=== PATIENT | male | born 1960 | race Caucasian/White ===

== ENCOUNTER 2016-03-30 12:21 | Observation (INO) | payer MEDICARE ==
[~2016-03-30] VITALS: Ht 188 cm; Wt 122.5 kg
[~2016-03-30 12:21] MED LIST: ALBU8.5H2 INHALATION; AMIT75TA2 PO; ASCO100089 PO; ASPI325T32 PO; BUPR-97 PO; CARI350T PO; CARV6.252 PO; CHOL200047 PO; CICL34.6 TP; CICL60SU2 TP; CLIN60LO2 TP; DIAZ5TAB3 PO; DOCU240C41 PO; DOXY50CA PO; EZET10TA PO; GABA600T2 PO; INSU100I18 SUBQ; INSU100V7 SUBQ; ISOS60TA2 PO; KETO30SY IJ; LANS15TA3 PO; LIDO700A6 TP; LORA10CA PO; MELA3TAB11 PO; METO2.5T12 PO; METR55GE TOP; MINO50CA2 PO; MULT-666 PO; NIAC500T7 PO; NITR0.4T SL; OMEG10005 PO; OMEP20CA11 PO; OXYC20TA4 PO; OXYGEN; POLY17PO6 PO; POTA20TA16 PO; PRAM0.5T3 PO; SENN25TA8 PO; SPIR25TA3 PO; TEST200V20 IM; TOPI50TA32 PO; TORS20TA3 PO; UBID100C25 PO; VENL150C PO; VITA-230 PO; [UNRECOGNIZED DRUG - OTHER] PO; epi-pen; slow mag PO
[2016-03-30 12:32] VITALS: BP 116/76; PULSE 82; RESP 14; O2SAT 93
--- NOTE | 2016-03-30 13:41 | ED.REPORT ---
HPI-General Illness Date of Service Mar 30, 2016 ED Provider: Thor Rogers MD 55 year old male with a history of diabetes, hypertension, CLL and TBI 5 years ago who presents to the ED due to chest pressure and decreased mental status in the last 24 hours. Pt's family states that he has been sleepy for the last day. This morning his BGL was noted to be at 58. Pt's mentation has improved after BGL increased, but is still not at baseline. Pt's family is concerned because after his TBI, the patients mental status and memory has been very good. 4 months ago he was working on [employer] projects. His family states he has had decreased mental status intermittently in the last 4 months where he does not get out of the house and watched TV. He has also had multiple falls in the last few months with the last fall 1 week ago. Additionally, he has symptoms of slurred speech, facial droop (noticed 3 days ago) and dysphagia. Pt has seen Dr. Blas for these symptoms and has a follow up, but his family is concerned with his decreased mentation. Nursing Notes Stated Complaint: UNRESPONSIVE/LOW BLOOD SUGAR Chief Complaint: General Complaint Nursing Notes Reviewed: Yes Allergies: Coded Allergies: morphine (Verified Allergy, Severe, ITCHING, 03/30/16) IV only Oweueez-Vqa-Vnb Reductase Inhibitor (Verified Allergy, Intermediate, Flushing, Body aches and pains, 10/20/14) body aches and pain venom-honey bee (Verified Allergy, Intermediate, Shortness of Breath, swelling, 10/20/14) naproxen (Verified Adverse Reaction, Intermediate, Stomach ulcers, 10/20/14 ) stomach ulcers Scheduled ([prostrate [facility]]) 1 CAPSULE PO DAILY ([slow mag]) 64 MG PO BID Amitriptyline (Amitriptyline) 75 Mg Tablet 75 MG PO HS Ascorbic Acid (Vitamin C) 1,000 Mg Tab.chew 1,000 MG PO DAILY Aspirin (Aspirin) 325 Mg Tablet 325 MG PO DAILY Bupropion ER (Wellbutrin XL) 150 Mg Tab.er.24h 150 MG PO BID Carvedilol (Carvedilol) 6.25 Mg Tablet 6.25 MG PO BID Cholecalciferol (Vitamin D3) (Vitamin D3) 2,000 Unit Capsule 2,000 UNIT PO DAILY Ciclopirox/Ure/Camph/Menth/Euc (Ciclodan 8% Kit) 34.6 Ml Solution 34.6 ML TP DIRECTED Clindamycin Phosphate (Clindamycin Phosphate Topical) 60 Ml Lotion 1 APPLIC TP BID Doxycycline Monohydrate (Monodox) 50 Mg Capsule 50 MG PO BID Ezetimibe (Zetia) 10 Mg Tablet 10 MG PO MORNING Gabapentin (Gabapentin) 600 Mg Tablet 1,200 MG PO TID 2 tabs in the morning 2 tabs in the afternoon 2 tabs at bedtime Insulin Glargine (Lantus U100 Insulin Vial) 100 Unit/Ml Vial 40 UNIT SUBQ BID am and hs Isosorbide MN ER (Isosorbide MN ER) 60 Mg Tab.er.24h 120 MG PO DAILY Ketorolac Tromethamine (Ketorolac Tromethamine) 30 Mg/1 Ml Syringe 1-2 ML IJ DAILY Lansoprazole ODT (Prevacid ODT) 15 Mg Tablet 15 MG PO DAILY Lidocaine (Lidoderm) 700 Mg Adh..patch 1 PATCH TP DAILY 5% Loratadine (Claritin) 10 Mg Capsule 10 MG PO DAILY Melatonin (Melatonin) 3 Mg Tablet.er 6 MG PO HS Metolazone (Metolazone) 2.5 Mg Tablet 2.5 MG PO DAILY 1 tab 30 minutes before torsemide prn wt gain above 3 lbs Metronidazole (Metrogel) 55 Gm Gel.w.pump 1 APPLIC TOP BID Minocycline (Minocycline) 50 Mg Capsule 50 MG PO BID take one caps in the morning and one in the evening. use 100mg (2capsulses) for acne flair ups. Multivitamin (Once Daily) 1 Each Tablet 1 EACH PO DAILY Niacin (Niacin) 500 Mg Tablet 500 MG PO BID [place]-3 Fatty Acids ([place]-3) 1,000 Mg Capsule 1,000 MG PO DAILY Omeprazole (Omeprazole) 20 Mg Capsule.dr 20 MG PO BID Potassium Chloride (Potassium Chloride) 20 Meq Tab.er.prt 10 MEQ PO TID take with food twice a day. if metolazone taken, take 2 extra tabs twice a day. Pramipexole Dihydrochloride (Mirapex) 0.5 Mg Tablet 0.5 MG PO HS Spironolactone (Spironolactone) 25 Mg Tablet 12.5 MG PO HS Testosterone Cypionate (Testosterone Cypionate) 200 Mg/1 Ml Vial 200 MG IM Q 2 WKS inject intramuscularly 1ml (200mg) every other week alternating injection site. Topiramate (Topamax) 50 Mg Tablet 50 MG PO BID Torsemide (Torsemide) 20 Mg Tablet 80 MG PO DIRECTED 240mg QAM Ubidecarenone (Co Q-10) 100 Mg Capsule 100 MG PO DAILY Venlafaxine ER (Effexor XR) 150 Mg Cap.er.24h 150 MG PO DAILY Vitamin A Palmitate (Vitamin A) 10,000 Unit Capsule 10,000 UNIT PO DAILY Scheduled PRN ([Oxygen]) PRN PRN PRN For Shortness of Breath as needed throughout the day and with CPAP nightly Albuterol HFA (Proair HFA) 8.5 Gm Hfa.aer.ad 2 PUFFS INHALATION q4-6h PRN PRN For Shortness of Breath Carisoprodol (Soma) 350 Mg Tablet 0 PO BID PRN PRN For Pain 1 tablet every 4-6 hours as needed throughout the day. then 2 tablets at bedtime Diazepam (Diazepam) 5 Mg Tablet 0 PO BID PRN PRN For Anxiety 1 tablet every 6 hours as needed for pain/anxiety. and 2 tablets at bedtime. Docusate Calcium (Stool Softener) 240 Mg Capsule 240 MG PO DAILY PRN PRN For Constipation Insulin Lispro (HumaLOG U100 Insulin Pen) 100 Unit/1 Ml Insuln.pen 20-50 UNIT SUBQ TIDAC PRN PRN glucose level Blood Sugar Lispro Correction <151 0 units 151-175 1 unit 176-200 2 units 201-225 3 units 226-250 4 units 251-275 5 units 276-300 6 units 301-325 7 units 326-350 8 units 351-375 9 units 376-400 10 units >400 12 units Check blood sugars before meals and at bedtime. Use correction factor only before meals. Nitroglycerin SL (Nitrostat) 0.4 Mg Tab.subl 0.4 MG SL Q5MIN PRN PRN For Chest Pain Polyethylene Glycol 3350 (Miralax) 17 Gm Powd.pack 1 TBS PO DAILY PRN PRN For Constipation Sennosides (Senna Laxative) 25 Mg Tablet 25 MG PO ASDIRECTED PRN PRN For Constipation oxyCODONE (oxyCODONE) 20 Mg Tablet 20 MG PO Q4H PRN PRN For Pain Miscellaneous Medications ([epi-pen]) prn/ bee stings allergy Ciclopirox Olamine (Ciclopirox) 30 Ml Suspension 30 ML TP General Time Seen by MD: 13:40 Chief Complaint Altered mental status Hx Obtained From: Patient, Other family... Arrived By: Walk-in Severity: Current: No pain currently Associated with: Reports: Weakness, Denies: Fever, Shortness of breath Pertinent Negative: Relieved by nothing Similar Sx Previous: Yes Past Medical History Past Medical History CLL TBI 5 years ago CHF diastolic LEVY on CPAP Reports: Diabetes mellitus, Hypertension Past Surgical History Heart cath Back Neuro stimulator Smoking History Smoker Current Status UNK Social History Other Social History: Good social support Review of Systems Full Review of Systems Constitutional: Reports: Fatigue Cardiovascular: Reports: Chest pain GI: Reports: Dysphagia Neurologic: Reports: Change LOC, Problem walking (frequent falls), Slurred speech, Weakness Psychiatric: Reports: Change mental status Complete sys rev & neg: except as marked. Physical Exam Vital Signs Vital Signs Date Time Temp Pulse Resp B/P Pulse Ox O2 Delivery O2 Flow Rate FiO2 03/30/16 12:32 36.3 82 14 116/76 93 Room Air Initial VS: Reviewed Skin: Warm, Dry Alertness: Positive: Sleeping but arousable Somewhat slurred speech Head / Eyes: Atraumatic, Normocephalic, PERRL Neck: Atraumatic, Full range of motion Respiratory / Chest: Breath sounds NL, Breath sounds = bilat, No respiratory distress, No rales, No rhonchi, No wheezing Cardiovascular: Heart rate NL, Regular rhythm, Heart sounds NL, Cap refill not delayed, Peripheral circulation NL Abdomen: Atraumatic, Soft, Non-tender Lower Extremity / Pelvis / MS: Neurologic intact, Vascular intact Blistering and red patch 5x3cm L proximal medial upper calf 2+ edema lower extremities Speech: Positive: Slurred Neuro: See NIH NIH Stroke Scale Level of Consciousness: Not alert, arousable (1) Ask Month & Age: Both questions right (0) Open/Close Eyes/Hand Food Operations Manager: Performs both tasks (0) Horizontal EO Movements: None (0) Visual [place]: No visual loss (0) Facial Palsy: Minor paralysis (1) (R sided Flattening of nasolabial fold) Right Arm Motor Drift (10s): Drift, not touch bed (1) Left Arm Motor Drift (10s): No drift 10 sec (0) Right Leg Motor Drift (5s): No drift 5 sec (0) Left Leg Motor Drift (5s): No drift 5 sec (0) Limb Ataxia FNF/Heel-Aquino: No ataxia (0) Sensation (Arms/Legs/Face): Pinprick less sharp (1) (L face arm and leg dull compared to right) Language Aphasia: Loss fluency ID matls (1) Dysarthria: Slurring intelligible (1) Extinction/Inattention: No exctinct/inattent (0) NIHSS Score: 6 Time NIHSS Performed: 14:00 Date NIHSS Performed: Mar 30, 2016 Interpretation & Diagnostics Lab Results Interpretation Result Diagram: 03/30/16 1435 03/30/16 1435 Test 03/30/16 12:51 03/30/16 14:02 03/30/16 14:35 Hold Purple Top Tube Received (Received) Hold Blue Top Tube Received (Received) Hold [place] Top Tube Received (Received) Urine Color Yellow (YELLOW) Urine Appearance Clear (CLEAR,HAZY) Urine pH 5.5 (5.0-8.0) Urine Specific [place] 1.015 (1.003-1.035) Urine Protein Negativemg/dL (NEG,TRACE) Urine Glucose (UA) Negativemg/dL (NEGATIVE) Urine Ketones Negativemg/dL (NEGATIVE) Urine Occult Blood Negative (NEGATIVE) Urine Nitrite Negative (NEGATIVE) Urine Bilirubin Negative (NEGATIVE) Urine Urobilinogen Normalmg/dL (NORMAL) Urine Leukocyte Esterase Negative (NEGATIVE) Urine RBC 0-2/hpf (0-2) Urine WBC 0-5/hpf (0-5) Urine Epithelial Cells Few/hpf (NONE-MOD) Urine Crystals None seen (NONE SEEN) Urine Bacteria Few/hpf (NONE-FEW) Urine Hyaline Casts None/lpf (NONE) Urine Granular Casts None seen (NONE SEEN) Urine Waxy Casts None seen (NONE SEEN) Urine Red Blood Cell Casts None seen (NONE SEEN) Urine White Blood Cell Casts None seen (NONE SEEN) Urine Mucus None seen (None Seen) Urine Trichomonas None seen (NONE SEEN) Urine Yeast None (NONE SEEN) Urinalysis Comment None Urine Culture Reflexed Not indicated White Blood Count 9.2th/mm3 (3.8-10.1) Red Blood Count 5.79mil/mm3 (4.40-5.80) Hemoglobin 17.0g/dL (13.8-17.2) Hematocrit 54.6% (41.0-50.0) Mean Corpuscular Volume 94.3fL (81-100) Mean Corpuscular Hemoglobin 29.4pg (27.0-35.0) Mean Corpuscular Hemoglobin Concent 31.1% (32.0-37.0) Red Cell Distribution Width 15.4% (12.3-15.4) Platelet Count 155bil/L (150-400) Neutrophils (%) (Auto) 64.7% (40-74) Lymphocytes (%) (Auto) 21.7% (14-46) Monocytes (%) (Auto) 10.4% (4-12) Eosinophils (%) (Auto) 2.2% (0-5) Basophils (%) (Auto) 0.5% (0-3) Prothrombin Time 10.0sec (8.1-12.5) Prothromb Time International Ratio 0.94ratio Sodium Level 142mEq/L (134-144) Potassium Level 4.4mEq/L (3.5-5.2) Chloride Level 99mEq/L (97-108) Carbon Dioxide Level 30mmol/L (18-29) Blood Urea Nitrogen 20mg/dL (6-24) Creatinine 1.57mg/dL (0.76-1.27) Estimat Glomerular Filtration Rate 49mL/min (>59) Glucose Level 92mg/dL (60-99) Calcium Level 9.0mg/dL (8.5-10.1) Total Bilirubin 0.5mg/dL (0.0-1.2) Aspartate Amino Transf (AST/SGOT) 85U/L (0-50) Alanine Aminotransferase (ALT/SGPT) 165U/L (0-44) Alkaline Phosphatase 197U/L (25-150) Troponin T < 0.010ug/L (0.0-0.011) Total Protein 7.3g/dL (6.4-8.4) Albumin 4.4g/dL (3.4-5.0) General Lab Results Interp 1: Labs reviewed ECG Interpretation Time: 14:45 Interpreted by: ED physician Normal ECG Interpretation: Normal ECG w/ rate of... (81) CT Head Interpretation IMPRESSION: No acute intracranial findings. Dictated by: Margoth Obando M.D. on 03/30/2016 at 14:55 Study: Head CT no contrast Interpretation / Wet Read by: Interpret - Radiologist Re-Eval/Medical Decision Source of Hx: Old records Time of Eval: 16:13 Re-Evaluation/Progress Note: Pt updated of labs and plan for ammonia level and US. Recommended admission. Pt understands and agrees with plan. All questions addressed. Consultation : Referral / Consult Name: Kelly Ray MD Consulted With: Hospitalist Call Returned at: 16:41 Supervisor Cytology: Will see patient, Agrees with eval, Agrees with plan, Accepts admit Counseled Regarding: Diagnosis, Lab results, Need for admission Discharge & Departure Primary Impression: Altered mental status Altered mental status type: unspecified Qualified Code: R41.82 - Altered mental status, unspecified Additional Impression: Hepatitis Disposition: ADMITTED TO HOSPITAL Discharge Condition All VS Reviewed: Yes Referrals: Jordi Le MD (PCP) Trey Blas MD Scribe Attestation Portions of this note were transcribed by Lilly Huff. I, (Dr. Rogers) personally performed the history, physical exam and medical decision-making; I reviewed and confirmed the accuracy of the information in the transcribed note. Signed by: Lilly Huff. 03/30/2016, [id number] copies to: Jordi Le MD; Trey Blas MD, Kirk H MD Mar 30, 2016 13:41 Lilly Huff Mar 30, 2016 14:07
[2016-03-30 14:51] LABS: APPEARANCE,URINE CLEAR (CLEAR,HAZY); COLOR,URINE YELLOW (YELLOW); PH,URINE 5.5 (5.0-8.0)
[2016-03-30 14:52] LABS: OCCULT BLOOD,URINE NEGATIVE (NEGATIVE); UROBILINOGEN,URINE NORMAL (NORMAL)
[2016-03-30 14:55] LABS: BASOPHILS % (AUTO) 0.5 % (0-3); EOSINOPHILS % (AUTO) 2.2 % (0-5); MONOCYTES % (AUTO) 10.4 % (4-12); Mean Corpuscular Hemoglobin 29.4 pg (27.0-35.0); Mean Corpuscular Volume 94.3 fL (81-100); NEUTROPHILS % (AUTO) 64.7 % (40-74); Platelet Count 155 bil/L (150-400)
--- NOTE | 2016-03-30 15:00 | DRSVH ---
PROCEDURE: CT BRAIN WITHOUT CONTRAST ([id number]) INDICATIONS: Stroke TECHNIQUE: Noncontrast 4.5 mm thick angled axial sections acquired from the foramen magnum to the vertex, with c oronal reformats. COMPARISON: None. FINDINGS: Image quality: Excellent. CSF spaces: Basal cisterns are patent. No extra-axial fluid collections. Ventricles are normal in size and shape. Brain: No midline shift. No intracranial masses or hemorrhage. Meeks-white matter interface is norm al. Skull and face: Calvarium and visualized facial bones are intact, without suspicious lesions. Sinuses: Visualized sinuses and mastoids are clear. IMPRESSION: No acute intracranial findings. Dictated by: Margoth Obando M.D. on 03/30/2016 at 14:55 Approved by: Margoth Obando M.D. on 03/30/2016 at 14:58
[2016-03-30 15:10] LABS: INR 0.94 ratio
[2016-03-30 15:28] LABS: TROPONIN T < 0.010 ug/L (0.0-0.011)
[2016-03-30] MEDS ORDERED: Multivitamin w/Vit K Inj 10 ML, Thiamine Inj 100 MG, Folic Acid Inj 1 MG, Magnesium Sul... IV ONE ×5 (16:37)
[2016-03-30] MEDS ORDERED: D5 0.45% NaCl + KCl 20 mEq/L 500 ML IV SCH (17:33)
[2016-03-30] MEDS ORDERED: Ondansetron 2 mg/mL 2 mL Inj IVPUSH PRN (17:35)
--- NOTE | 2016-03-30 17:52 | DRSVH ---
PROCEDURE: US ABDOMEN ([id number]) INDICATIONS: elevated transaminases TECHNIQUE: Real-time scanning was performed of the abdominal and retroperitoneal organs, with image documentatio n. COMPARISON: None. FINDINGS: Liver: The liver measures 14.5 cm in length and demonstrates increased echogenicity. Gallbladder: Patient is status post cholecystectomy. Biliary ducts: Intrahepatic bile ducts are non-dilated. Extrahepatic bile duct caliber measures 7.6 mm. Normal is 6-7 mm or less in diameter, or 10 mm or less post-cholecystectomy. Pancreas: The pancreas is nonvisualized due to overlying bowel gas. Spleen: Spleen is normal in size and homogeneous in echotexture. Kidneys: Kidneys are normal in size and echotexture. Right kidney measures 9.8 cm long; left kidney measures 10.9 cm long. No hydronephrosis or nephrolithiasis. No solid masses. Aorta: The aorta is nonvisualized due to overlying bowel gas. Iliacs: The iliacs are not visualized. IVC: Intrahepatic inferior vena cava is patent. Miscellaneous: No free abdominal fluid. IMPRESSION: 1. Limited study. 2. Probable hepatic steatosis, although other sources of hepatocellular dysfunction could be consider ed in the differential diagnosis. Dictated by: Margoth Obando M.D. on 03/30/2016 at 17:49 Approved by: Margoth Obando M.D. on 03/30/2016 at 17:51
[2016-03-30 18:09] VITALS: PULSE 80
[2016-03-30 18:28] VITALS: BP 119/65; PULSE 78; RESP 12; O2SAT 97
--- NOTE | 2016-03-30 18:49 | NUR ---
Admit Admission info completed w/ information from , as pt is very drowsy. Per , pt has a neurostimulator with the paddle in his R lower side which needs to be adjusted prn. will be her much of shift and will instruct staff on use of device before she leaves. 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 During admit process, BG checked and found to be low, given 1/2 amp D50 by primary RN. Pt has hx chronic back pain but currently appears to be sleeping peacefully.
[2016-03-30] MEDS ORDERED: Albuterol-Ipratropium 3 mL Inhalation Solution NEB PRN (19:55)
[2016-03-30 20:00] VITALS: PULSE 77
--- NOTE | 2016-03-30 20:00 | PCM.HPMED ---
Subjective Date of Service Mar 30, 2016 Primary Provider: Admitting Physician: Kelly Ray MD Primary Care Physician: Jordi Le MD Attending Physician: Kelly Ray MD Chief Complaint: low blood glucose / weakness HISTORY was OBTAINED FROM PATIENT / [facility] NOTES History of present illness 55y m w/ progressive decline x 4 months,fatigue- associated falls, presented today w.ongoing somnolence worse than before also slurred speech, facial droop and dysphagia. Intermittent sinus congestion, morning productive cough is chronic. no significant change in BM/urination. ongonig minor pimples skin infections on back despite doxycycline, new left popliteal erythema blister from the wheelchair. 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 Prasad. aware of elevated lipid and fatty liver hx. Dr Blas recently decreased topiramate dose. In the ER, IVF w/ thiamine administered as requested by this provider until U tox came back w neg opioid despite indicating he had opioid earlier today and until diet could be advanced. Review of Systems - none of the following - F/C/sick contact / wt change/ GIFFORD / cp / acid reflux / leg swelling / yeast infections / rash chronic boils - per dermatoligst doxycycline x years, hibiclens has been expensive FAMILY HX Social Hx smoker MEDICATIONS ([[facility]]) 1 CAPSULE PO DAILY ([slow mag]) 64 MG PO BID Amitriptyline (Amitriptyline) 75 Mg Tablet 75 MG PO HS Ascorbic Acid (Vitamin C) 1,000 Mg Tab.chew 1,000 MG PO DAILY Aspirin (Aspirin) 325 Mg Tablet 325 MG PO DAILY Bupropion ER (Wellbutrin XL) 150 Mg Tab.er.24h 150 MG PO BID Carvedilol (Carvedilol) 6.25 Mg Tablet 6.25 MG PO BID Cholecalciferol (Vitamin D3) (Vitamin D3) 2,000 Unit Capsule 2,000 UNIT PO DAILY Ciclopirox/Ure/Camph/Menth/Euc (Ciclodan 8% Kit) 34.6 Ml Solution 34.6 ML TP DIRECTED Clindamycin Phosphate (Clindamycin Phosphate Topical) 60 Ml Lotion 1 APPLIC TP BID Doxycycline Monohydrate (Monodox) 50 Mg Capsule 50 MG PO BID Ezetimibe (Zetia) 10 Mg Tablet 10 MG PO MORNING Gabapentin (Gabapentin) 600 Mg Tablet 1,200 MG PO TID 2 tabs in the morning 2 tabs in the afternoon 2 tabs at bedtime Insulin Glargine (Lantus U100 Insulin Vial) 100 Unit/Ml Vial 40 UNIT SUBQ BID am and hs Isosorbide MN ER (Isosorbide MN ER) 60 Mg Tab.er.24h 120 MG PO DAILY Ketorolac Tromethamine (Ketorolac Tromethamine) 30 Mg/1 Ml Syringe 1-2 ML IJ DAILY Lansoprazole ODT (Prevacid ODT) 15 Mg Tablet 15 MG PO DAILY Lidocaine (Lidoderm) 700 Mg Adh..patch 1 PATCH TP DAILY 5% Loratadine (Claritin) 10 Mg Capsule 10 MG PO DAILY Melatonin (Melatonin) 3 Mg Tablet.er 6 MG PO HS Metolazone (Metolazone) 2.5 Mg Tablet 2.5 MG PO DAILY 1 tab 30 minutes before torsemide prn wt gain above 3 lbs Metronidazole (Metrogel) 55 Gm Gel.w.pump 1 APPLIC TOP BID Minocycline (Minocycline) 50 Mg Capsule 50 MG PO BID take one caps in the morning and one in the evening. use 100mg (2capsulses) for acne flair ups. Multivitamin (Once Daily) 1 Each Tablet 1 EACH PO DAILY Niacin (Niacin) 500 Mg Tablet 500 MG PO BID Dustin-3 Fatty Acids (Dustin-3) 1,000 Mg Capsule 1,000 MG PO DAILY Omeprazole (Omeprazole) 20 Mg Capsule.dr 20 MG PO BID Potassium Chloride (Potassium Chloride) 20 Meq Tab.er.prt 10 MEQ PO TID take with food twice a day. if metolazone taken, take 2 extra tabs twice a day. Pramipexole Dihydrochloride (Mirapex) 0.5 Mg Tablet 0.5 MG PO HS Spironolactone (Spironolactone) 25 Mg Tablet 12.5 MG PO HS Testosterone Cypionate (Testosterone Cypionate) 200 Mg/1 Ml Vial 200 MG IM Q 2 WKS inject intramuscularly 1ml (200mg) every other week alternating injection site. Topiramate (Topamax) 50 Mg Tablet 50 MG PO BID Torsemide (Torsemide) 20 Mg Tablet 80 MG PO DIRECTED 240mg QAM Ubidecarenone (Co Q-10) 100 Mg Capsule 100 MG PO DAILY Venlafaxine ER (Effexor XR) 150 Mg Cap.er.24h 150 MG PO DAILY Vitamin A Palmitate (Vitamin A) 10,000 Unit Capsule 10,000 UNIT PO DAILY Scheduled PRN ([Oxygen]) PRN PRN PRN For Shortness of Breath as needed throughout the day and with CPAP nightly Albuterol HFA (Proair HFA) 8.5 Gm Hfa.aer.ad 2 PUFFS INHALATION q4-6h PRN PRN For Shortness of Breath Carisoprodol (Soma) 350 Mg Tablet 0 PO BID PRN PRN For Pain 1 tablet every 4-6 hours as needed throughout the day. then 2 tablets at bedtime Diazepam (Diazepam) 5 Mg Tablet 0 PO BID PRN PRN For Anxiety 1 tablet every 6 hours as needed for pain/anxiety. and 2 tablets at bedtime. Docusate Calcium (Stool Softener) 240 Mg Capsule 240 MG PO DAILY PRN PRN For Constipation Insulin Lispro (HumaLOG U100 Insulin Pen) 100 Unit/1 Ml Insuln.pen 20-50 UNIT SUBQ TIDAC PRN PRN glucose level Blood Sugar Lispro Correction <151 0 units 151-175 1 unit 176-200 2 units 201-225 3 units 226-250 4 units 251-275 5 units 276-300 6 units 301-325 7 units 326-350 8 units 351-375 9 units 376-400 10 units >400 12 units Check blood sugars before meals and at bedtime. Use correction factor only before meals. 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 De La Torre) Heart cath 04/2012 -1. Minor coronary artery disease.2. Left ventricular ejection fraction 65% // Hypertension/dyslipidemia complex regional pain syndrome/fibromyalgia GERD/constipation chronic urinary incontinence with nocturia, Diabetes mellitus, obesity, sleep disorder, sleep apnea (has CPAP/Dr. Jose Nino MD depression/anxiety,arthritis, multiple spinal surgeries, postlaminectomy syndrome Neuro stimulator 10/2014 hypogonadism Allergies Coded Allergies: morphine (Verified Allergy, Severe, ITCHING, 03/30/16) IV only Gurxqnn-Xqk-Luh Reductase Inhibitor (Verified Allergy, Intermediate, Flushing, Body aches and pains, 10/20/14) body aches and pain venom-honey bee (Verified Allergy, Intermediate, Shortness of Breath, swelling, 10/20/14) naproxen (Verified Adverse Reaction, Intermediate, Stomach ulcers, 10/20/14 ) stomach ulcers PMH Social History Hx Alcohol Use: No Hx Substance Use: No Hx Tobacco Use: No Smoking Status: Smoker Current Status UNK Exam Vital Signs Vital Sign - Last Date Time Temp Pulse Resp B/P Pulse Ox O2 Delivery O2 Flow Rate FiO2 03/30/16 18:28 36.6 78 12 119/65 97 Nasal Cannula 2.00 Lab and Diagnostics Labs Exam on admission 2L NC NAD drowsy appearance, symmetrical facies NC/AT no icterus no injected eyes EOMI PERRL /no pharyngeal lesions/ no oral lesions / hearing intact Supple neck CTAB equal chest rise / no accessory muscle use / speaks in full sentences / no rrw RRR S1 S2 / no mrg / 2+ radial pulses Soft nt nd + BS no hepatosplenomegaly moderate damian edema no cyanosis no ecchymosis of lower extremities No rash / no jaundice DICK follows commands patient is able to swallow without difficulty and able to stay awake erythema and pimples on back blisters on left popliteal EKG sinus 81 ALT > AST, alk phos Trop 0.013 Tsh normal Cr 1.57 , mildly more elevated than baseline hepatitis panel pending lipid panel pending ammonia 37 PROCEDURE: US ABDOMEN ([id number]) INDICATIONS: elevated transaminases TECHNIQUE: Real-time scanning was performed of the abdominal and retroperitoneal organs, with image documentation. COMPARISON: None. FINDINGS: Liver: The liver measures 14.5 cm in length and demonstrates increased echogenicity. Gallbladder: Patient is status post cholecystectomy. Biliary ducts: Intrahepatic bile ducts are non-dilated. Extrahepatic bile duct caliber measures 7.6 mm. Normal is 6-7 mm or less in diameter, or 10 mm or less post-cholecystectomy. Pancreas: The pancreas is nonvisualized due to overlying bowel gas. Spleen: Spleen is normal in size and homogeneous in echotexture. Kidneys: Kidneys are normal in size and echotexture. Right kidney measures 9.8 cm long; left kidney measures 10.9 cm long. No hydronephrosis or nephrolithiasis. No solid masses. Aorta: The aorta is nonvisualized due to overlying bowel gas. Iliacs: The iliacs are not visualized. IVC: Intrahepatic inferior vena cava is patent. Miscellaneous: No free abdominal fluid. IMPRESSION: 1. Limited study. 2. Probable hepatic steatosis, although other sources of hepatocellular dysfunction could be considered in the differential diagnosis. Result Diagram: 03/30/16 1435 03/30/16 1435 Assessment & Plan Active issues and reason for admission Ill appearing male w/ somnolence and hypoglycemia, treating as diffuse cellulitis, not totally controlled w/ chronic doxycycline and pending immunoglobulin levels with known hx of immunoglobinemia and severe infections --pending cortisol --start vanco/rocephine --pending immunoglobulin levels, prior hx of IVIG, consult Dr. 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 De La Torre) Heart cath 04/2012 -1. Minor coronary artery disease.2. Left ventricular ejection fraction 65% // Hypertension/dyslipidemia complex regional pain syndrome/fibromyalgia GERD/constipation chronic urinary incontinence with nocturia, Diabetes mellitus, obesity, sleep disorder, sleep apnea (has CPAP/Dr. Jose Nino MD depression/anxiety,arthritis, multiple spinal surgeries, postlaminectomy syndrome Neuro stimulator 10/2014 hypogonadism --resume all home pain/mood medications, pending topiramate levels Diet DM, D5 03/13 NS K 50cc x 500cc due to hypoglycemia on admission DVT prophylaxis lovenox heparin scd ambulate Code full Disposition inpatient Assessment and plan were discussed with patient Kelly Ray MD Mar 30, 2016 19:59
[2016-03-30] MEDS ORDERED: Piperacillin-Tazo 3.375 Gm Inj 3.375 GM in Dextrose 5% Minibag Plus 50 ML IV ONE (20:25)
[2016-03-30] MEDS: Insulin Human REGular 300 Unit/3 mL Inj SUBQ SCH (20:30)
[2016-03-30] MEDS: buPROPion XL 150 mg ER24 Tablet PO SCH (21:03)
[2016-03-30 21:06] VITALS: BP 111/72; PULSE 84; RESP 16; O2SAT 98
[2016-03-30] MEDS: Insulin GLARgine 100 Unit/mL Syringe SUBQ SCH (21:18)
--- NOTE | 2016-03-30 22:31 | PCM.CONPHA ---
Subjective low blood glucose / weakness His family states he has had decreased mental status intermittently in the last 4 months where he does not get out of the house and watched TV. He has also had multiple falls in the last few months with the last fall 1 week ago. Additionally, he has symptoms of slurred speech, facial droop (noticed 3 days ago) and dysphagia. Pt has seen Dr. Blas for these symptoms and has a follow up, but his family is concerned with his decreased mentation. onognig pimples skin infections on back despite doxycycline new left popliteal erythema blister from [facility] Allergies: Coded Allergies: morphine (Verified Allergy, Severe, ITCHING, 03/30/16) IV only Swvjnzl-Ter-Ptr Reductase Inhibitor (Verified Allergy, Intermediate, Flushing, Body aches and pains, 10/20/14) body aches and pain venom-honey bee (Verified Allergy, Intermediate, Shortness of Breath, swelling, 10/20/14) naproxen (Verified Adverse Reaction, Intermediate, Stomach ulcers, 10/20/14 ) stomach ulcers Scheduled ([[employer]]) 1 CAPSULE PO DAILY ([slow mag]) 64 MG PO BID Amitriptyline (Amitriptyline) 75 Mg Tablet 75 MG PO HS Ascorbic Acid (Vitamin C) 1,000 Mg Tab.chew 1,000 MG PO DAILY Aspirin (Aspirin) 325 Mg Tablet 325 MG PO DAILY Bupropion ER (Wellbutrin XL) 150 Mg Tab.er.24h 150 MG PO BID Carvedilol (Carvedilol) 6.25 Mg Tablet 6.25 MG PO BID Cholecalciferol (Vitamin D3) (Vitamin D3) 2,000 Unit Capsule 2,000 UNIT PO DAILY Ciclopirox/Ure/Camph/Menth/Euc (Ciclodan 8% Kit) 34.6 Ml Solution 34.6 ML TP DIRECTED Clindamycin Phosphate (Clindamycin Phosphate Topical) 60 Ml Lotion 1 APPLIC TP BID Doxycycline Monohydrate (Monodox) 50 Mg Capsule 50 MG PO BID Ezetimibe (Zetia) 10 Mg Tablet 10 MG PO MORNING Gabapentin (Gabapentin) 600 Mg Tablet 1,200 MG PO TID 2 tabs in the morning 2 tabs in the afternoon 2 tabs at bedtime Insulin Glargine (Lantus U100 Insulin Vial) 100 Unit/Ml Vial 40 UNIT SUBQ BID am and hs Isosorbide MN ER (Isosorbide MN ER) 60 Mg Tab.er.24h 120 MG PO DAILY Ketorolac Tromethamine (Ketorolac Tromethamine) 30 Mg/1 Ml Syringe 1-2 ML IJ DAILY Lansoprazole ODT (Prevacid ODT) 15 Mg Tablet 15 MG PO DAILY Lidocaine (Lidoderm) 700 Mg Adh..patch 1 PATCH TP DAILY 5% Loratadine (Claritin) 10 Mg Capsule 10 MG PO DAILY Melatonin (Melatonin) 3 Mg Tablet.er 6 MG PO HS Metolazone (Metolazone) 2.5 Mg Tablet 2.5 MG PO DAILY 1 tab 30 minutes before torsemide prn wt gain above 3 lbs Metronidazole (Metrogel) 55 Gm Gel.w.pump 1 APPLIC TOP BID Minocycline (Minocycline) 50 Mg Capsule 50 MG PO BID take one caps in the morning and one in the evening. use 100mg (2capsulses) for acne flair ups. Multivitamin (Once Daily) 1 Each Tablet 1 EACH PO DAILY Niacin (Niacin) 500 Mg Tablet 500 MG PO BID [place]-3 Fatty Acids ([place]-3) 1,000 Mg Capsule 1,000 MG PO DAILY Omeprazole (Omeprazole) 20 Mg Capsule.dr 20 MG PO BID Potassium Chloride (Potassium Chloride) 20 Meq Tab.er.prt 10 MEQ PO TID take with food twice a day. if metolazone taken, take 2 extra tabs twice a day. Pramipexole Dihydrochloride (Mirapex) 0.5 Mg Tablet 0.5 MG PO HS Spironolactone (Spironolactone) 25 Mg Tablet 12.5 MG PO HS Testosterone Cypionate (Testosterone Cypionate) 200 Mg/1 Ml Vial 200 MG IM Q 2 WKS inject intramuscularly 1ml (200mg) every other week alternating injection site. Topiramate (Topamax) 50 Mg Tablet 50 MG PO BID Torsemide (Torsemide) 20 Mg Tablet 80 MG PO DIRECTED 240mg QAM Ubidecarenone (Co Q-10) 100 Mg Capsule 100 MG PO DAILY Venlafaxine ER (Effexor XR) 150 Mg Cap.er.24h 150 MG PO DAILY Vitamin A Palmitate (Vitamin A) 10,000 Unit Capsule 10,000 UNIT PO DAILY Scheduled PRN ([Oxygen]) PRN PRN PRN For Shortness of Breath as needed throughout the day and with CPAP nightly Albuterol HFA (Proair HFA) 8.5 Gm Hfa.aer.ad 2 PUFFS INHALATION q4-6h PRN PRN For Shortness of Breath Carisoprodol (Soma) 350 Mg Tablet 0 PO BID PRN PRN For Pain 1 tablet every 4-6 hours as needed throughout the day. then 2 tablets at bedtime Diazepam (Diazepam) 5 Mg Tablet 0 PO BID PRN PRN For Anxiety 1 tablet every 6 hours as needed for pain/anxiety. and 2 tablets at bedtime. Docusate Calcium (Stool Softener) 240 Mg Capsule 240 MG PO DAILY PRN PRN For Constipation Insulin Lispro (HumaLOG U100 Insulin Pen) 100 Unit/1 Ml Insuln.pen 20-50 UNIT SUBQ TIDAC PRN PRN glucose level Blood Sugar Lispro Correction <151 0 units 151-175 1 unit 176-200 2 units 201-225 3 units 226-250 4 units 251-275 5 units 276-300 6 units 301-325 7 units 326-350 8 units 351-375 9 units 376-400 10 units >400 12 units Check blood sugars before meals and at bedtime. Use correction factor only before meals. 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 De La Torre) complex regional pain syndrome fibromyalgia GERD, , chronic urinary incontinence with nocturia, Diabetes mellitus, Hypertension/dyslipidemia rthritis, obesity, sleep disorder, depression/anxiety, Heart cath 04/2012 -1. Minor coronary artery disease.2. Left ventricular ejection fraction 65%. multiple spinal surgeries, bilateral carpal, release, sleep apnea (has CPAP/Dr. Jose Nino MD postlaminectomy syndrome Neuro stimulator 10/2014 GERD/constipation hypogonadism edematous lower extremities erythem and pimples on back Smoking History smoking hx EKG sinus 81 ALT > AST, alk phos Trop 0.013 Tsh normal Cr 1.57 , mildly more elevated than baseline hepatitis panel pending lipid panel pending ammonia 37 PROCEDURE: US ABDOMEN ([id number]) INDICATIONS: elevated transaminases TECHNIQUE: Real-time scanning was performed of the abdominal and retroperitoneal organs, with image documentation. COMPARISON: None. FINDINGS: Liver: The liver measures 14.5 cm in length and demonstrates increased echogenicity. Gallbladder: Patient is status post cholecystectomy. Biliary ducts: Intrahepatic bile ducts are non-dilated. Extrahepatic bile duct caliber measures 7.6 mm. Normal is 6-7 mm or less in diameter, or 10 mm or less post-cholecystectomy. Pancreas: The pancreas is nonvisualized due to overlying bowel gas. Spleen: Spleen is normal in size and homogeneous in echotexture. Kidneys: Kidneys are normal in size and echotexture. Right kidney measures 9.8 cm long; left kidney measures 10.9 cm long. No hydronephrosis or nephrolithiasis. No solid masses. Aorta: The aorta is nonvisualized due to overlying bowel gas. Iliacs: The iliacs are not visualized. IVC: Intrahepatic inferior vena cava is patent. Miscellaneous: No free abdominal fluid. IMPRESSION: 1. Limited study. 2. Probable hepatic steatosis, although other sources of hepatocellular dysfunction could be considered in the differential diagnosis. somnolence, treating as diffuse cellulutis, not totally controlled w/ chronic doxycycline and pending globulin levels --pending cortisol --dc chronic doxycycline, start vanoc/rocephine --pending globnulin levels, prior hx of IVIG, consult his gunner's mate m in the morning low glucose in DM --D5 50/hr --advance diet transmainitis --pending lipid, hepatitis, known steatosis, known dyslipidemia narcolepsy suspected by Struck, contributing to somnolence --social contact worker if follow up visit can be expedited, having difficulty w / their sleep medicine clinic - changed in doctors there recently hibiclens is expensive Objective Vital Signs Date Time Temp Pulse Resp B/P Pulse Ox O2 Delivery O2 Flow Rate FiO2 03/30/16 21:06 36.9 84 16 111/72 98 Nasal Cannula 2.00 03/30/16 20:00 77 03/30/16 18:28 36.6 78 12 119/65 97 Nasal Cannula 2.00 03/30/16 18:09 80 03/30/16 12:32 36.3 82 14 116/76 93 Room Air Weight (Kilograms): 122.400 Height (Feet): 6 Height (Inches): 2.00 Test 03/30/16 12:51 03/30/16 14:02 03/30/16 14:35 03/30/16 17:41 Hold Purple Top Tube Received (Received) Hold Blue Top Tube Received (Received) Hold [place] Top Tube Received (Received) Urine Color Yellow (YELLOW) Urine Appearance Clear (CLEAR,HAZY) Urine pH 5.5 (5.0-8.0) Urine Specific [place] 1.015 (1.003-1.035) Urine Protein Negativemg/dL (NEG,TRACE) Urine Glucose (UA) Negativemg/dL (NEGATIVE) Urine Ketones Negativemg/dL (NEGATIVE) Urine Occult Blood Negative (NEGATIVE) Urine Nitrite Negative (NEGATIVE) Urine Bilirubin Negative (NEGATIVE) Urine Urobilinogen Normalmg/dL (NORMAL) Urine Leukocyte Esterase Negative (NEGATIVE) Urine RBC 0-2/hpf (0-2) Urine WBC 0-5/hpf (0-5) Urine Epithelial Cells Few/hpf (NONE-MOD) Urine Crystals None seen (NONE SEEN) Urine Bacteria Few/hpf (NONE-FEW) Urine Hyaline Casts None/lpf (NONE) Urine Granular Casts None seen (NONE SEEN) Urine Waxy Casts None seen (NONE SEEN) Urine Red Blood Cell Casts None seen (NONE SEEN) Urine White Blood Cell Casts None seen (NONE SEEN) Urine Mucus None seen (None Seen) Urine Trichomonas None seen (NONE SEEN) Urine Yeast None (NONE SEEN) Urinalysis Comment None Urine Culture Reflexed Not indicated White Blood Count 9.2th/mm3 (3.8-10.1) Red Blood Count 5.79mil/mm3 (4.40-5.80) Hemoglobin 17.0g/dL (13.8-17.2) Hematocrit 54.6% (41.0-50.0) Mean Corpuscular Volume 94.3fL (81-100) Mean Corpuscular Hemoglobin 29.4pg (27.0-35.0) Mean Corpuscular Hemoglobin Concent 31.1% (32.0-37.0) Red Cell Distribution Width 15.4% (12.3-15.4) Platelet Count 155bil/L (150-400) Neutrophils (%) (Auto) 64.7% (40-74) Lymphocytes (%) (Auto) 21.7% (14-46) Monocytes (%) (Auto) 10.4% (4-12) Eosinophils (%) (Auto) 2.2% (0-5) Basophils (%) (Auto) 0.5% (0-3) Prothrombin Time 10.0sec (8.1-12.5) Prothromb Time International Ratio 0.94ratio Sodium Level 142mEq/L (134-144) Potassium Level 4.4mEq/L (3.5-5.2) Chloride Level 99mEq/L (97-108) Carbon Dioxide Level 30mmol/L (18-29) Blood Urea Nitrogen 20mg/dL (6-24) Creatinine 1.57mg/dL (0.76-1.27) Estimat Glomerular Filtration Rate 49mL/min (>59) Glucose Level 92mg/dL (60-99) Calcium Level 9.0mg/dL (8.5-10.1) Total Bilirubin 0.5mg/dL (0.0-1.2) Aspartate Amino Transf (AST/SGOT) 85U/L (0-50) Alanine Aminotransferase (ALT/SGPT) 165U/L (0-44) Alkaline Phosphatase 197U/L (25-150) Total Protein 7.3g/dL (6.4-8.4) Albumin 4.4g/dL (3.4-5.0) Ammonia 37ug/dL (18-53) Troponin T 0.013ug/L (0.0-0.011) Thyroid Stimulating Hormone (TSH) 1.160uIU/mL (0.450-4.500) Test 03/30/16 17:45 03/30/16 18:13 Pro-B-Type Natriuretic Peptide 28.37pg/mL (0-210) Urine Opiates Screen Negative Urine Methadone Screen Negative Urine Barbiturates Screen Negative Urine Amphetamines Screen Negative Urine Benzodiazepines Screen Positive Urine Cocaine Metabolite Screen Negative Urine Cannabinoids Screen Negative Assessment/Plan Assessment/Plan VANCO DOSING PER PHARMACY FOR THIS 55 YR OLD MALE PATIENT HE IS RECEIVING VANCO FOR CELLULITIS AND IS ALSO RECEIVING ZOSYN. HE IS A FEBRILE WITH A WBC OF 9.2 THE PATIENT WEIGHS 122 KG AND IS 72 INCHES TALL WITH A SERUM CREATINE OF 1.57 MG /DL AND A CR CL OF 61.8 BASED ON PATIENT PARAMETERS VANCO WILL BE DOSED AT 1250 MG EVERY 12 HOURS WITH A TARGET TROUGH OF 15-20 MCG/ML. THE TROUGH WILL BE DRAWN PRIOR TO THE 4TH DOSE ON 04/01/16 PHARMACY WILL FOLLOW DAILY AND ADJUST APPROPRIATE THANK YOU FOR THE CONSULT IN THE CARE OF THIS PATIENT. Thom GARZON Eve Wilson Mar 30, 2016 22:31
--- NOTE | 2016-03-30 23:43 | NUR ---
Medications Patient's gave handwritten list of patient's home doses of medications- times and doses. very concerned about patient getting these medications tonight: 350-700mg Soma, 10mg Diazepam, 40mg Oxycontin, and 75mg Amitriptyline. paged, verbal order received to continue these medications at home doses. Sent written order to pharmacy. Pharmacist called this RN, reported that according to external med list, these particular medications have not been filled since 2014, and she is hesitant to order them because of their doses and no current refills. Patient's has left for the night. Will administer the Amitriptyline and continue with the PRN Oxycodone for pain control. Shreyas-paged with a follow-up on the medication and will have day RN address. Addendum: 03/30/16 at 2351 by JEANETTE BANDA RN MD returned phone call, stated that she spoke with pharmacist regarding medication and doses. Requested to have patient's bring in bottles of current medications. Will pass on to day RN. Addendum: 03/31/16 at 7293 by JEANETTE BANDA RN Patient has appeared calm overnight. PRN Oxycodone has been effective for pain control, has been given Q4 hours overnight. Back and leg pain level from 10 and 7/10 down to 0/10 when patient denied pain. Frequent monitoring in place.
[2016-03-31 00:16] VITALS: BP 104/64; PULSE 83; RESP 16; O2SAT 95
[2016-03-31] MEDS: Insulin Human REGular 300 Unit/3 mL Inj SUBQ SCH ×4 (02:30→21:27)
[2016-03-31 04:12] VITALS: BP 114/71; PULSE 82; RESP 16; O2SAT 98
--- NOTE | 2016-03-31 04:29 | NUR ---
Glucose levels Patient's glucose levels overnight: 1999: 91 (patient is eating dinner at this time) 2100: 109 2245: 132 0010: 123 0200: 111 0400:105 Patient's mentation has improved overnight- answers questions more quickly and speech is more clear. Using call light appropriately for needs with frequent rounding in place.
[2016-03-31] MEDS ORDERED: Piperacillin-Tazo 3.375 Gm Inj 3.375 GM in Dextrose 5% Minibag Plus 50 ML IV SCH (04:30)
[2016-03-31 06:07] LABS: Hepatitis A Antibody IgM Negative (Negative); Hepatitis B Core Antibody IgM Negative (Negative)
--- NOTE | 2016-03-31 06:27 | NUR ---
Ambulation Patient attempted to get out of bed at abut 0600, [place] bed alarm in place. Assisted patient to bathroom- two person assist with walker. Patient very unsteady on feet, drifts to the right side, leans backwards, and shuffles his feet. Gait belt brought in patient's room for safety. [facility] alarm reactivated once patient was assisted back into bed. Call light within reach and patient reminded about it's use.
[2016-03-31] MEDS ORDERED: Vancomycin Dose per Pharmacist XX SCH (08:30)
[2016-03-31] MEDS ORDERED: Venlafaxine XR 75 mg ER24 Capsule PO SCH (08:30)
[2016-03-31] MEDS: Pantoprazole 4 mg/mL 10 mL Inj IVPUSH SCH ×2 (08:38→17:27)
[2016-03-31] MEDS: Insulin GLARgine 100 Unit/mL Syringe SUBQ SCH ×2 (08:39→21:26)
[2016-03-31 08:40] LABS: BASOPHILS % (AUTO) 0.2 % (0-3); EOSINOPHILS % (AUTO) 2.2 % (0-5); MONOCYTES % (AUTO) 11.6 % (4-12); Mean Corpuscular Hemoglobin 29.7 pg (27.0-35.0); Mean Corpuscular Volume 92.8 fL (81-100); NEUTROPHILS % (AUTO) 66.1 % (40-74); Platelet Count 122 bil/L (150-400)
[2016-03-31] MEDS: buPROPion XL 150 mg ER24 Tablet PO SCH ×2 (08:43→21:05)
[2016-03-31] MEDS: Isosorbide Mononitrate 60 mg ER24 Tablet PO SCH (08:44)
[2016-03-31] MEDS: Lidocaine Topical 5% Patch TOPICAL SCH (08:46)
[2016-03-31 09:23] VITALS: BP 118/74; PULSE 83; RESP 14; O2SAT 98
[2016-03-31 09:59] LABS: TROPONIN T 0.01 ug/L (0.0-0.011)
[2016-03-31 11:18] VITALS: PULSE 83
--- NOTE | 2016-03-31 11:58 | NUR ---
Wound Care [facility] Received wound care order for assessment of blisters to left medial popliteal area and right heel. Family requests moisturizing cream to apply to dry skin on feet and legs. States she applies Eucerin daily at home. Assessment reveals fragile but intact blister to left medial popliteal area measuring 2cm W x 4.8cm L x 1.2cm raised. Applied adaptic and sacral Mepilex to protect blisters. Instructed patient, family and nursing to try to keep intact as long as possible. Patient also with intact blister to right medial heel with thick skin covering. Blister measures 1.2cm W x 1.6cm L x 0.2cm raised. Patient instructed to cont to float heel and avoid pressure or friction to blister area. Blister remains uncovered due to think skin covering. No discoloration noted to blister area. Nursing to change dressing to left medial knee every 48 hours and as needed for soiling. Wound care to follow as needed. Patient will more to P500 bed after wound care treatment today. Addendum: 03/31/16 at 1206 by EVERTON DIASWS Provided family with moisturizing cream for feet. Patient and family deny knowledge of how blisters formed. Family states patient gets blisters often but they are typically on front of legs.
--- NOTE | 2016-03-31 15:01 | NUR ---
Pain Patient / unhappy that there were problems with patients medications last night and that patient did not receive his HS OxyContin last night. Patient reporting back pain 8-10 consistently throughout the shift. Attempted sitting patient in chair, repositioning, prn pain meds, ice/heat offered, without success. reporting that pain has been much worse since patient fall in December. insistent that patient is more clear/less somnolent after he has had pain medication, and more tire/less alert when pain in higher.
--- NOTE | 2016-03-31 15:42 | PCM.PNMED ---
Subjective Date of Service Mar 31, 2016 Subjective Patient seen in room with family this morning. He is alert and oriented and back to his baseline per family. reports that patient has been experiencing intermittent episodes of lethargy since December. She states that it will last between 2-4 days and then remit. She states that when these episodes happens, besides the lethargy, patient is also not very responsive or conversational. These episodes have been more frequent and severe, with the most current one starting on Thursday. They have not noticed any signs or symptoms of infection, although they do notice blisters behind his left knee and on his right heel, which are likely from shearing forces. Patient does remember feeling weak and fatigue, but denies any change in medications or specific reasons. He denies any LOC or syncope. He does have CRPS of his legs and has a spinal stimulator for his chronic LBP, but reports he is still in fairly severe pain most of the time. He has been very constipated also. PMH 1. CLL with hypogammaglobulinemia - Dr. Prasad 2. Type 2 diabetes mellitus, requiring high-dose insulin therapy. 3. Morbid obesity. 4. Hypertension. 5. Cholecystectomy. 6. Chronic pain with narcotic habituation. 7. Depression and anxiety. 8. Degenerative disk disease with previous L3-L4, L4-L5 [place]amine[place] [address] Braxton. and Spinal Stimulator in place by Dr. Kingsley 9. Cervical disc disease with previous C5-C6, C4-C5, C6-C7 diskectomy and fusion. 10. Prior carpal tunnel release. 11. Depression. 12. Hypogonadism on Testosterone 13. Chronic diastolic congestive heart failure. 14. Severe obstructive sleep apnea, recent diagnosis in May of this year, started on CPAP. 15. Polycythemia Exam Vital Signs Vital Sign - Last Date Time Temp Pulse Resp B/P Pulse Ox O2 Delivery O2 Flow Rate FiO2 03/31/16 04:12 36.8 82 16 114/71 98 Room Air 03/31/16 00:16 2.00 Intake and Output 03/30/16 03/30/16 03/31/16 Cumulative From/Thru 15:00 23:00 07:00 03/30/16 12:32 - 03/31/16 06:19 Intake Total 1585 ml 1585 ml Output Total 800 ml 800 ml Balance 785 ml 785 ml Intake Oral 966 ml 966 ml IV Total 619 ml 619 ml Output Urine Total 800 ml 800 ml Exam Gen: Well-developed male who appears in mild pain HEENT: PERRLA, sclera anicteric, oropharynx nonerythematous Neck: Soft, nontender, no JVD noted CV: Regular rate and rhythm, no murmurs appreciated Resp: CTAB, normal respiratory effort Abd; soft obese. Moderately tender right upper and right lower quadrant. Moderate Stool impaction noted Msk: Severe pain to light palpation of bilateral lower extremities. Moves all extremities, was able to transfer to chair with 2 person assist. Neuro: Alert and oriented 3, speaking full sentences, Derm: 2 large bullae behind the left knee, small skin breakdown on right posterior heel. No other rashes noted Psych: Flat affect although can be agitated due to his pain. IVs and Medications Medications Reviewed: Medications were reviewed in detail Lab and Diagnostics Result Diagram: 03/30/16 1435 03/30/16 1435 Assessment & Plan 55-year-old male history of CLL, polycythemia, CRPS, chronic back pain status post spinal stimulator, TBI, type II diabetes, severe LEVY, hypogonadism, and diastolic CHF who presents for evaluation of progressive intermittent fatigue, lethargy, and AMS. #Lethargy and AMS, POA Patient has multiple risk factors that could be the cause of this problem: CLL, Severe LEVY, TBI history, and a very sedative medical regimen. His blood sugar was also noted to be 61 in the ER, and his mentation has improved overnight with improved blood sugars, so a labile blood sugar can also be a root cause. Will monitor as below. Dr. butt has evaluated this patient on an outpatient basis, and narcolepsy is on his differential Patient currently has no s/s of an infection. Procalcitonin 0.05. No White count or left shift. No fever/cough/SOB. Will discontinue antibiotics. Dr. Prasad, heme/onc, has been notified of his admission. Pending IG levels. Neutropenic precautions removed. #Hypoglycemia, POA Present during initial ER admission, has improved after D5w. Continue Q4h POC BG checks. Hypoglycemia protocol in place #T2DM, Insulin requiring, with neuropathy POA Per med rec, patient in on Lantus 40 units BID with a Lispro correctional scale Will need to further assess patient's home sugar logs HgbA1c pending Continue Gabapentin 1200mg TID. Although consider titration downwards if causing too much sedation. #CLL with hypogammaglobulinemia, POA, stable Management per Dr. Prasad. #Obstructive Sleep Apnea, POA Will need to educate patient on importance of using his CPAP Patient would like a new sleep study for titration #Elevated Transaminases, POA AST-85, ALT 165 on admission. Has been improving. Known history of Hepatic steatosis, reaffirmed on abdominal U/S. Uncertain if this is the cause of his transaminitis or medication side effect -Lipid panel WNL #CHF w. pEF, POA Diastolic dysfunction noted on Echo in 2012. LVEF was 60-65% then. No s/s of acute exacerbation Monitor I/Os. Continue Torsemide and Coreg #Chronic Regional Pain Syndrome, POA Currently has a spinal stimulator for his chronic LBP. Continue Oxycodone 20mg PO Q4h prn pain. Patient also requires Oxycontin Er 40mg QHS to get him through the night. #Skin Blisters, POA Blisters behind left knee and on right heel. Wound care consulted #GERD, POA PPI daily #Mood Disorder, POA Continue Venlafaxine and Bupropion Er #Constipation, POA Likely opioid induced. Aggressive Bowel regimen scheduled: Colace, Senna, Miralax If fails, consider Movantik #Hyperlipidemia, POA Continue home medications Dispo: Likely discharge tomorrow afternoon if patient is medically stable and mentation is normal. Pain Evaluation: Pain not Controlled VTE Prophylaxis: Sub-Q Enoxaparin Resuscitation Status: CPR: Attempt Resuscitation Attending Statement The patient was seen and examined together with Dr. Glover on 03/31/2016 and I have agree with the assessment and plan of care as noted above. Santiago Glover DO Mar 31, 2016 08:08 Greg Monroy MD Apr 01, 2016 15:02
--- NOTE | 2016-03-31 16:48 | NUR ---
Case Management: PRIETO explained to patient and spouse Yelitza at approximately 1600. I also provided "How Medicare covers Self-Administered Drugs Given in Hospital Outpatient Settings". Yelitza refused to sign stating she needed to read through it first. I returned to room, Yelitza signed the PRIETO at 1621, signed copy placed in chart, copy given to Yelitza. Yelitza had many complaints re: patient care, I provided her with the Patient Advocate phone number [phone]. Amanda Barron RN
[2016-03-31 20:00] VITALS: PULSE 90
[2016-03-31 20:30] VITALS: BP 116/72; PULSE 85; RESP 16; O2SAT 96
[2016-03-31] MEDS ORDERED: oxyCODONE ER 40 mg ER12 Tablet PO SCH (21:00)
[2016-04-01 00:41] VITALS: BP 122/75; PULSE 86; RESP 16; O2SAT 97
[2016-04-01 02:08] LABS: Free Thyroxine Index 1.5 (1.2-4.9); T3 Uptake 36 % (24-39); Thyroxine (T4) 4.3 ug/dL (4.5-12.0)
[2016-04-01] MEDS: Insulin Human REGular 300 Unit/3 mL Inj SUBQ SCH ×2 (02:09→08:30)
[2016-04-01 05:08] VITALS: BP 133/82; PULSE 85; RESP 18; O2SAT 98
--- NOTE | 2016-04-01 05:41 | NUR ---
Pain Pt states that he's always in pain. Administered 40mg oxycontin ER as scheduled. Pt own CPAP applied for LEVY. HS meds as scheduled. Pt denies chest pain, sob, n/v or abd discomfort.
[2016-04-01 06:14] LABS: Vitamin B12 911 pg/mL (211-946)
[2016-04-01 07:14] LABS: BASOPHILS % (AUTO) 0.5 % (0-3); EOSINOPHILS % (AUTO) 2.5 % (0-5); MONOCYTES % (AUTO) 11.4 % (4-12); Mean Corpuscular Hemoglobin 29.5 pg (27.0-35.0); Mean Corpuscular Volume 92.1 fL (81-100); NEUTROPHILS % (AUTO) 61.7 % (40-74); Platelet Count 121 bil/L (150-400)
[2016-04-01] MEDS: Lidocaine Topical 5% Patch TOPICAL SCH ×2 (08:30→09:20)
[2016-04-01] MEDS: Pantoprazole 4 mg/mL 10 mL Inj IVPUSH SCH (09:14)
[2016-04-01] MEDS: Insulin GLARgine 100 Unit/mL Syringe SUBQ SCH (09:17)
[2016-04-01] MEDS: Isosorbide Mononitrate 60 mg ER24 Tablet PO SCH (09:18)
[2016-04-01] MEDS: buPROPion XL 150 mg ER24 Tablet PO SCH (09:19)
--- NOTE | 2016-04-01 09:41 | PCM.PNMED ---
Subjective Date of Service Apr 01, 2016 Subjective Slept well last night. No complaints, would like to go home. Sugars were in the 110s early in the AM and that is with only Lantus 15u BID here. Exam Vital Signs Vital Sign - Last Date Time Temp Pulse Resp B/P Pulse Ox O2 Delivery O2 Flow Rate FiO2 04/01/16 05:08 36.8 85 18 133/82 98 Room Air 03/31/16 00:16 2.00 Intake and Output 03/31/16 03/31/16 04/01/16 Cumulative From/Thru 15:00 23:00 07:00 03/30/16 12:32 - 04/01/16 06:07 Intake Total 1397 ml 1117 ml 4099 ml Output Total 2105 ml 2400 ml 5305 ml Balance -708 ml -1283 ml -1206 ml Intake Oral 1397 ml 850 ml 3213 ml IV Total 267 ml 886 ml Output Urine Total 2105 ml 2400 ml 5305 ml # Bowel Movements 1 1 Exam Gen: Well-developed male who appears in mild pain Neck: Soft, nontender, CV: Regular rate and rhythm, no murmurs appreciated Resp: CTAB, normal respiratory effort Abd; soft obese. Mildly tender right upper and right lower quadrant. Moderate Stool impaction noted Msk: Severe pain to light palpation of bilateral lower extremities. Moves all extremities, was able to transfer to chair with 2 person assist. Neuro: Alert and oriented 3, speaking full sentences, Derm: 2 large bullae behind the left knee covered in bandaging, small skin breakdown on right posterior heel. No other rashes noted Psych: Flat affect although can be agitated due to his pain. IVs and Medications Medications Reviewed: Medications were reviewed in detail Lab and Diagnostics Result Diagram: 04/01/1640 04/01/1640 Assessment & Plan 55-year-old male history of CLL, polycythemia, CRPS, chronic back pain status post spinal stimulator, TBI, type II diabetes, severe LEVY, hypogonadism, and diastolic CHF who presents for evaluation of progressive intermittent fatigue, lethargy, and AMS. #Lethargy and AMS, POA Patient has multiple risk factors that could be the cause of this problem: CLL, Severe LEVY, TBI history, and a very sedative medical regimen. His blood sugar was also noted to be 61 in the ER, and his mentation has improved overnight with improved blood sugars, so a labile blood sugar can also be a root cause. Will monitor as below. Dr. butt has evaluated this patient on an outpatient basis, and narcolepsy is on his differential Patient currently has no s/s of an infection. Procalcitonin 0.05. No White count or left shift. No fever/cough/SOB. Will discontinue antibiotics. Dr. Prasad, heme/onc, has been notified of his admission. Pending IG levels. Neutropenic precautions removed. #Hypoglycemia, POA Present during initial ER admission, has improved after D5w. Continue Q4h POC BG checks. Hypoglycemia protocol in place Patient's blood sugars consistently in the 90s-110s during the night. #T2DM, Insulin requiring, with neuropathy POA Per med rec, patient in on Lantus 40 units BID with a Lispro correctional scale per home med rec Will need to further assess patient's home sugar logs HgbA1c 6.3 - Well controlled sugars, but patient reports he has been diabetic for over a decade, so his target sugar levels should be more relaxed. Will decrease Lantus to 15 units BID on d/c because that is what patient has been receiving in the hospital and his sugars have been in the 90s-110s. Hypoglycemic episodes is highly suspicious for the cause of his altered mentation states. Continue Gabapentin 1200mg TID for his neuropathy. Although consider titration downwards if causing too much sedation. #CLL with hypogammaglobulinemia, POA, stable Management per Dr. Prasad. #Obstructive Sleep Apnea, POA Will need to educate patient on importance of using his CPAP Patient would like a new sleep study for titration, will defer to PCP for initiation #Elevated Transaminases, POA AST-85, ALT 165 on admission. Has been improving. Known history of Hepatic steatosis, reaffirmed on abdominal U/S. Uncertain if this is the cause of his transaminitis or medication side effect -Lipid panel WNL #CHF w. pEF, POA Diastolic dysfunction noted on Echo in 2012. LVEF was 60-65% then. No s/s of acute exacerbation Monitor I/Os. Continue Torsemide and Coreg #Chronic Regional Pain Syndrome, POA Currently has a spinal stimulator for his chronic LBP. Continue Oxycodone 20mg PO Q4h prn pain. Patient also requires Oxycontin Er 40mg QHS to get him through the night. Pain has been well controlled over night with this regimen. #Skin Blisters, POA Blisters behind left knee and on right heel. Wound care consulted Improving, no purulent discharge noticed. #GERD, POA PPI daily #Mood Disorder, POA Continue Venlafaxine and Bupropion Er Mood has been stable and appropriate #Constipation, POA Likely opioid induced. Aggressive Bowel regimen scheduled: Colace, Senna, Miralax If fails, consider Movantik Patient did have a few regular BMs during hospital stay #Hyperlipidemia, POA Continue home medications Pain Evaluation: Adequate Pain Control VTE Prophylaxis: Sub-Q Enoxaparin Resuscitation Status: CPR: Attempt Resuscitation Attending Statement The patient was seen and examined together with Dr. Glover on 04/01/2016 and I agree with the history, exam and plan as outlined in the note above. Pt to DC to home today, please see discharge summary for details. Santiago Glover DO Apr 01, 2016 08:27 Greg Monroy MD Apr 02, 2016 10:12
[2016-04-01] MEDS ORDERED: INSU100V7 SUBQ (10:47)
--- NOTE | 2016-04-01 11:48 | NUR ---
Social Work Note Initial Assessment: D/A: The Pt is a 55 y/o male that was admitted on 03/10/2016 for altered LOC. The Pt's PCP is MD Jordi Le and he has [facility] Medicare insurance, denies LTC or VA benefits. The Pt's readmission score is 6. EMR reviewed. SW met with the Pt and the Pt's at bedside to discuss role and discharge planning. The Pt lives in a two story home with his in [place] and five supportive adult children living in the state. The Pt's is his OA, hospital given copy. The Pt's assists the Pt with most of his care, to include cooking, cleaning, and personal care. The house has multiple stairs inside and two stairs leading into. The Pt has trouble with the stairs inside and is currently staying in a bottom floor bedroom because of this. The Pt has been having trouble with the outside stairs and exploration of a future ramp was discussed with the Pt's . The Pt uses a cane and a walker, as needed. His also provides the family with transportation assistance. The Pt has no history of HH/SNF services, but is interested in HH. SNF/HH list provided. The Pt and gave no preference for HH, rotating calendar utilized for [facility] referral. F2F completed, access given. Open date for [facility] is 04/04/2016. The Pt is connected with multiple doctors in the community to include MD Blas at [facility] for neurology and an unknown psychiatrist at [facility] in [place]. The Pt is currently prescribed Wellbutrin for depression. The Pt also saw an unknown named counselor once at [facility], but this person has since left. The explored the need for TBI group therapy and individual counseling. TBI group therapy and community MH resource list given. SRG also explored, given to the Pt's . The Pt's also reported that she was attempting to set up a sleep medicine study for the Pt but the first available appointment wasn't until May. She requested assistance to have the appointment moved up, which unfortunately we are unable to assist with. P: Pt to be discharged today with family and [facility] (RN/PT/CONVEYOR BELT OPERATOR), to provide transportation. [facility] referral placed, paperwork faxed, and access given. Open date of 04/04/2016. SRG, TBI group therapy, and community resources provided to Pt and . ANGELIC Sawant Assurance Senior ANGELIC Azar Addendum: 04/01/16 at 1149 by SHONDA YOUNG Amended: Links added.
[2016-04-01 12:11] VITALS: PULSE 85; RESP 18; O2SAT 98
--- NOTE | 2016-04-01 12:16 | PCM.DIMED ---
Santiago Glover DO 04/01/16 1050: Discharge Instructions Date of Service Apr 01, 2016 Dates of Hospitalization Mar 30, 2016 at 17:00 Discharge Diagnosis Discharge Diagnosis #Lethargy and AMS, Resolved #Hypoglycemia - resolved #T2DM, Insulin requiring, with neuropathy, controlled #CLL with hypogammaglobulinemia, #Obstructive Sleep Apnea, #Elevated Transaminases, Improving #CHF w. pEF, #Chronic Regional Pain Syndrome, #Skin Blisters, #GERD, #Mood Disorder, #Constipation, #Hyperlipidemia Medication Instructions We have changed your long acting insulin to 15 units twice a day. Please use your Lantus or Humulin N 15 units twice a day only. Please continue taking blood sugars every 4 hours or when he is symptomatic. Bring this log with you when you follow up with Dr. Le Continue taking your other medications as prescribed. Diet Diabetic Activity Home Health Phyical Therapy Call your provider Fever or Chills, Shortness of breath, Bleeding, Chest pain, Vomitting Patient Instructions You are being discharged home with home health services. Please note the change in your Insulin regimen. Follow-up Provider: Jordi Le MD Follow-up with PCP in: 1 week Greg Monroy MD 04/01/16 1502: Santiago Glover DO Apr 01, 2016 10:50 Greg Monroy MD Apr 01, 2016 15:02
--- NOTE | 2016-04-01 15:33 | NUR ---
Discharge Patient departed unit via wheelchair, accompanied by and staff. Patient alert and oriented at time of discharge. Prior to discharge patient displayed adequate urine/bowel function, respiratory function and nutritional intake. Patient reporting difficulty with sleep (no sleep aids added to medication list due to number of medications patient is already taking). Patient continues to be resistant in use of CPAP, but uses intermittently despite additional patient teaching. During hospital stay, patient had no falls, blood sugars stabilized, patient had no signs of hypoxia and maintained adequate O2 sats on room air, denied nausea and displayed no signs of infection. Patient being followed by home health physical therapy to increase mobility and decrease incidents of falls. Discharge instructions/medications reviewed with patient/. All questions addressed. Patient belongings and discharge instructions in hand. No prescriptions written.
--- NOTE | 2016-04-01 17:57 | PCM.DC.MED ---
Discharge Summary Date of Service Apr 01, 2016 Dates of Hospitalization Date of Hospital Admission Mar 30, 2016 at 17:00 Date of Discharge: Apr 01, 2016 Providers: Admitting Physician: Kelly Ray MD Primary Care Physician: Jordi Le MD Attending Physician: Kelly Ray MD Diagnosis at Time of Discharge Diagnosis at Time of Discharge #Lethargy and AMS, Resolved #Hypoglycemia - resolved #T2DM, Insulin requiring, with neuropathy, controlled #CLL with hypogammaglobulinemia, #Obstructive Sleep Apnea, #Elevated Transaminases, Improving #CHF w. pEF, #Chronic Regional Pain Syndrome, #Skin Blisters, #GERD, #Mood Disorder, #Constipation, #Hyperlipidemia Procedures XRay, CTs & MRIs PROCEDURE: CT BRAIN WITHOUT CONTRAST ([id number]) IMPRESSION: No acute intracranial findings. PROCEDURE: US ABDOMEN ([id number]) IMPRESSION: 1. Limited study. 2. Probable hepatic steatosis, although other sources of hepatocellular dysfunction could be considered in the differential diagnosis. Brief History reports that patient has been experiencing intermittent episodes of lethargy since December. She states that it will last between 2-4 days and then remit. She states that when these episodes happens, besides the lethargy, patient is also not very responsive or conversational. These episodes have been more frequent and severe, with the most current one starting on Thursday. They have not noticed any signs or symptoms of infection, although they do notice blisters behind his left knee and on his right heel, which are likely from shearing forces. Patient does remember feeling weak and fatigue, but denies any change in medications or specific reasons. He denies any LOC or syncope. He does have CRPS of his legs and has a spinal stimulator for his chronic LBP, but reports he is still in fairly severe pain most of the time. He has been very constipated also. Hospital Course 55-year-old male history of CLL, polycythemia, CRPS, chronic back pain status post spinal stimulator, TBI, type II diabetes, severe LEVY, hypogonadism, and diastolic CHF who presents for evaluation of progressive intermittent fatigue, lethargy, and AMS. #Lethargy and AMS, POA Patient has multiple risk factors that could be the cause of this problem: CLL, Severe LEVY, TBI history, and a very sedative medical regimen. His blood sugar was also noted to be 61 in the ER, and his mentation has improved overnight with improved blood sugars, so a labile blood sugar can also be a root cause. Will monitor as below. Dr. butt has evaluated this patient on an outpatient basis, and narcolepsy is on his differential Patient currently has no s/s of an infection. Procalcitonin 0.05. No White count or left shift. No fever/cough/SOB. Will discontinue antibiotics. Dr. Prasad, heme/onc, has been notified of his admission. Pending IG levels. Neutropenic precautions removed. #Hypoglycemia, POA Present during initial ER admission, has improved after D5w. Continue Q4h POC BG checks. Hypoglycemia protocol in place Patient's blood sugars consistently in the 90s-110s during the night. #T2DM, Insulin requiring, with neuropathy POA Per med rec, patient in on Lantus 40 units BID with a Lispro correctional scale per home med rec Will need to further assess patient's home sugar logs HgbA1c 6.3 - Well controlled sugars, but patient reports he has been diabetic for over a decade, so his target sugar levels should be more relaxed. Will decrease Lantus to 15 units BID on d/c because that is what patient has been receiving in the hospital and his sugars have been in the 90s-110s. Hypoglycemic episodes is highly suspicious for the cause of his altered mentation states. Continue Gabapentin 1200mg TID for his neuropathy. Although consider titration downwards if causing too much sedation. #CLL with hypogammaglobulinemia, POA, stable Management per Dr. Prasad. #Obstructive Sleep Apnea, POA Will need to educate patient on importance of using his CPAP Patient would like a new sleep study for titration, will defer to PCP for initiation #Elevated Transaminases, POA AST-85, ALT 165 on admission. Has been improving. Known history of Hepatic steatosis, reaffirmed on abdominal U/S. Uncertain if this is the cause of his transaminitis or medication side effect -Lipid panel WNL #CHF w. pEF, POA Diastolic dysfunction noted on Echo in 2012. LVEF was 60-65% then. No s/s of acute exacerbation Monitor I/Os. Continue Torsemide and Coreg #Chronic Regional Pain Syndrome, POA Currently has a spinal stimulator for his chronic LBP. Continue Oxycodone 20mg PO Q4h prn pain. Patient also requires Oxycontin Er 40mg QHS to get him through the night. Pain has been well controlled over night with this regimen. #Skin Blisters, POA Blisters behind left knee and on right heel. Wound care consulted Improving, no purulent discharge noticed. #GERD, POA PPI daily #Mood Disorder, POA Continue Venlafaxine and Bupropion Er Mood has been stable and appropriate #Constipation, POA Likely opioid induced. Aggressive Bowel regimen scheduled: Colace, Senna, Miralax If fails, consider Movantik Patient did have a few regular BMs during hospital stay #Hyperlipidemia, POA Continue home medications #Probably Hepatic Steatosis, Observed on Abd U/S F/u with PCP Exam Vital Signs (Last) Date Time Temp Pulse Resp B/P Pulse Ox O2 Delivery O2 Flow Rate FiO2 04/01/16 12:11 85 18 98 Room Air 04/01/16 05:08 36.8 133/82 03/31/16 00:16 2.00 Test 03/30/16 12:51 03/30/16 14:02 03/30/16 14:35 03/30/16 17:41 Hold Purple Top Tube Received (Received) Hold Blue Top Tube Received (Received) Hold [place] Top Tube Received (Received) Urine Color Yellow (YELLOW) Urine Appearance Clear (CLEAR,HAZY) Urine pH 5.5 (5.0-8.0) Urine Specific [place] 1.015 (1.003-1.035) Urine Protein Negativemg/dL (NEG,TRACE) Urine Glucose (UA) Negativemg/dL (NEGATIVE) Urine Ketones Negativemg/dL (NEGATIVE) Urine Occult Blood Negative (NEGATIVE) Urine Nitrite Negative (NEGATIVE) Urine Bilirubin Negative (NEGATIVE) Urine Urobilinogen Normalmg/dL (NORMAL) Urine Leukocyte Esterase Negative (NEGATIVE) Urine RBC 0-2/hpf (0-2) Urine WBC 0-5/hpf (0-5) Urine Epithelial Cells Few/hpf (NONE-MOD) Urine Crystals None seen (NONE SEEN) Urine Bacteria Few/hpf (NONE-FEW) Urine Hyaline Casts None/lpf (NONE) Urine Granular Casts None seen (NONE SEEN) Urine Waxy Casts None seen (NONE SEEN) Urine Red Blood Cell Casts None seen (NONE SEEN) Urine White Blood Cell Casts None seen (NONE SEEN) Urine Mucus None seen (None Seen) Urine Trichomonas None seen (NONE SEEN) Urine Yeast None (NONE SEEN) Urinalysis Comment None Urine Culture Reflexed Not indicated Prothrombin Time 10.0sec (8.1-12.5) Prothromb Time International Ratio 0.94ratio Ammonia 37ug/dL (18-53) Thyroid Stimulating Hormone (TSH) 1.160uIU/mL (0.450-4.500) Hepatitis A IgM Antibody Negative (Negative) Hepatitis B Surface Antigen Negative (Negative) Hepatitis B Core IgM Antibody Negative (Negative) Hepatitis C Antibody <0.1s/co ratio (0.0-0.9) Hepatitis C Comment Comment (.) Test 03/30/16 17:45 03/30/16 18:13 03/31/16 02:05 03/31/16 06:35 Pro-B-Type Natriuretic Peptide 28.37pg/mL (0-210) Urine Opiates Screen Negative Urine Methadone Screen Negative Urine Barbiturates Screen Negative Urine Amphetamines Screen Negative Urine Benzodiazepines Screen Positive Urine Cocaine Metabolite Screen Negative Urine Cannabinoids Screen Negative Serum Immunoglobulin A 109mg/dL (90-386) Serum Immunoglobulin G 561mg/dL (700-1600) Lactic Acid Level 0.6mmol/L (0.4-2.0) Procalcitonin 0.05ng/mL (See Comment) Immunoglobulin M 33mg/dL (20-172) Hold [place] Top Tube Received (Received) Test 03/31/16 08:30 04/01/16 06:40 Hemoglobin A1c 6.3% (4.8-5.6) Troponin T 0.010ug/L (0.0-0.011) Triglycerides Level 102mg/dL (0-149) Cholesterol Level 122mg/dL (100-199) LDL Cholesterol, Calculated 74.600mg/dL (0-99) VLDL Cholesterol 20.400mg/dL HDL Cholesterol 27mg/dL (>39) Cholesterol/HDL Ratio 4.52 (0.0-4.4) Vitamin B12 Level 911pg/mL (211-946) Folate > 19.9ng/mL (>3.0) Free Thyroxine Index 1.5 (1.2-4.9) Thyroxine (T4) 4.3ug/dL (4.5-12.0) Triiodothyronine (T3) Uptake 36% (24-39) White Blood Count 7.7th/mm3 (3.8-10.1) Red Blood Count 5.09mil/mm3 (4.40-5.80) Hemoglobin 15.0g/dL (13.8-17.2) Hematocrit 46.9% (41.0-50.0) Mean Corpuscular Volume 92.1fL (81-100) Mean Corpuscular Hemoglobin 29.5pg (27.0-35.0) Mean Corpuscular Hemoglobin Concent 32.0% (32.0-37.0) Red Cell Distribution Width 14.8% (12.3-15.4) Platelet Count 121bil/L (150-400) Neutrophils (%) (Auto) 61.7% (40-74) Lymphocytes (%) (Auto) 23.6% (14-46) Monocytes (%) (Auto) 11.4% (4-12) Eosinophils (%) (Auto) 2.5% (0-5) Basophils (%) (Auto) 0.5% (0-3) Sodium Level 142mEq/L (134-144) Potassium Level 4.2mEq/L (3.5-5.2) Chloride Level 108mEq/L (97-108) Carbon Dioxide Level 24mmol/L (18-29) Blood Urea Nitrogen 13mg/dL (6-24) Creatinine 1.08mg/dL (0.76-1.27) Estimat Glomerular Filtration Rate 75mL/min (>59) Glucose Level 120mg/dL (60-99) Calcium Level 8.2mg/dL (8.5-10.1) Total Bilirubin 0.4mg/dL (0.0-1.2) Aspartate Amino Transf (AST/SGOT) 25U/L (0-50) Alanine Aminotransferase (ALT/SGPT) 65U/L (0-44) Alkaline Phosphatase 133U/L (25-150) Total Protein 5.7g/dL (6.4-8.4) Albumin 3.6g/dL (3.4-5.0) Microbiology Results blood cultures no growth after 24 hours Discharge Medications Discharge Medications ([prostrate healthcom]) 1 CAPSULE PO DAILY (Reported) ([slow mag]) 64 MG PO BID (Reported) Amitriptyline (Amitriptyline) 75 Mg Tablet 75 MG PO HS (Reported) Ascorbic Acid (Vitamin C) 1,000 Mg Tab.chew 1,000 MG PO DAILY (Reported) Aspirin (Aspirin) 325 Mg Tablet 325 MG PO DAILY (Reported) Bupropion ER (Wellbutrin XL) 150 Mg Tab.er.24h 150 MG PO BID (Reported) Carvedilol (Carvedilol) 6.25 Mg Tablet 6.25 MG PO BID (Reported) Cholecalciferol (Vitamin D3) (Vitamin D3) 2,000 Unit Capsule 2,000 UNIT PO DAILY (Reported) Doxycycline Monohydrate (Monodox) 50 Mg Capsule 50 MG PO BID (Reported) Ezetimibe (Zetia) 10 Mg Tablet 10 MG PO MORNING (Reported) Gabapentin (Gabapentin) 600 Mg Tablet 1,200 MG PO TID (Reported) 2 tabs in the morning 2 tabs in the afternoon 2 tabs at bedtime Insulin Glargine (Lantus U100 Insulin Vial) 100 Unit/Ml Vial 15 UNIT SUBQ BID am and hs Prescribed by: TJ GLOVER DO Isosorbide MN ER (Isosorbide MN ER) 60 Mg Tab.er.24h 120 MG PO DAILY (Reported) Ketorolac Tromethamine (Ketorolac Tromethamine) 30 Mg/1 Ml Syringe 1-2 ML IJ DAILY (Reported) Lansoprazole ODT (Prevacid ODT) 15 Mg Tablet 15 MG PO DAILY (Reported) Loratadine (Claritin) 10 Mg Capsule 10 MG PO DAILY (Reported) Melatonin (Melatonin) 3 Mg Tablet.er 6 MG PO HS (Reported) Multivitamin (Once Daily) 1 Each Tablet 1 EACH PO DAILY (Reported) Niacin (Niacin) 500 Mg Tablet 500 MG PO BID (Reported) [place]-3 Fatty Acids (Kiowa-3) 1,000 Mg Capsule 1,000 MG PO DAILY (Reported) Omeprazole (Omeprazole) 20 Mg Capsule.dr 20 MG PO BID (Reported) Potassium Chloride (Potassium Chloride) 20 Meq Tab.er.prt 10 MEQ PO TID ( Reported) take with food twice a day. if metolazone taken, take 2 extra tabs twice a day. Pramipexole Dihydrochloride (Mirapex) 0.5 Mg Tablet 0.5 MG PO HS (Reported) Spironolactone (Spironolactone) 25 Mg Tablet 12.5 MG PO HS (Reported) Testosterone Cypionate (Testosterone Cypionate) 200 Mg/1 Ml Vial 200 MG IM Q 2 WKS (Reported) inject intramuscularly 1ml (200mg) every other week alternating injection site. Topiramate (Topamax) 50 Mg Tablet 50 MG PO BID (Reported) Torsemide (Torsemide) 20 Mg Tablet 80 MG PO DIRECTED (Reported) 240mg QAM Ubidecarenone (Co Q-10) 100 Mg Capsule 100 MG PO DAILY (Reported) Venlafaxine ER (Effexor XR) 150 Mg Cap.er.24h 150 MG PO DAILY (Reported) Vitamin A Palmitate (Vitamin A) 10,000 Unit Capsule 10,000 UNIT PO DAILY ( Reported) As needed ([Oxygen]) PRN PRN PRN For Shortness of Breath (Reported) as needed throughout the day and with CPAP nightly Albuterol HFA (Proair HFA) 8.5 Gm Hfa.aer.ad 2 PUFFS INHALATION q4-6h PRN PRN For Shortness of Breath (Reported) Carisoprodol (Soma) 350 Mg Tablet 0 PO BID PRN PRN For Pain (Reported) 1 tablet every 4-6 hours as needed throughout the day. then 2 tablets at bedtime Diazepam (Diazepam) 5 Mg Tablet 0 PO BID PRN PRN For Anxiety (Reported) 1 tablet every 6 hours as needed for pain/anxiety. and 2 tablets at bedtime. Docusate Calcium (Stool Softener) 240 Mg Capsule 240 MG PO DAILY PRN PRN For Constipation (Reported) Insulin Lispro (HumaLOG U100 Insulin Pen) 100 Unit/1 Ml Insuln.pen 20-50 UNIT SUBQ TIDAC PRN PRN glucose level (Reported) Blood Sugar Lispro Correction <151 0 units 151-175 1 unit 176-200 2 units 201-225 3 units 226-250 4 units 251-275 5 units 276-300 6 units 301-325 7 units 326-350 8 units 351-375 9 units 376-400 10 units >400 12 units Check blood sugars before meals and at bedtime. Use correction factor only before meals. Nitroglycerin SL (Nitrostat) 0.4 Mg Tab.subl 0.4 MG SL Q5MIN PRN PRN For Chest Pain (Reported) Polyethylene Glycol 3350 (Miralax) 17 Gm Powd.pack 1 TBS PO DAILY PRN PRN For Constipation (Reported) Sennosides (Senna Laxative) 25 Mg Tablet 25 MG PO ASDIRECTED PRN PRN For Constipation (Reported) oxyCODONE (oxyCODONE) 20 Mg Tablet 20 MG PO Q4H PRN PRN For Pain (Reported) Miscellaneous Medications ([epi-pen]) (Reported) prn/ bee stings allergy Additional med instructions We have changed your long acting insulin to 15 units twice a day. Please use your Lantus or Humulin N 15 units twice a day only. Please continue taking blood sugars every 4 hours or when he is symptomatic. Bring this log with you when you follow up with Dr. Le Continue taking your other medications as prescribed. Followup Plan Disposition: Home with [facility] Discharge Diet: Diabetic Discharge Activity: Home Health Phyical Therapy Patient Instructions You are being discharged home with home health services. Please note the change in your Insulin regimen. Follow-up Provider: Jordi Le MD Follow-up with PCP in: 1 week Time spent 30 minutes Attending Statement The patient was seen and examined together with Dr. Glover on 04/01/2016 and I agree with the history, exam and plan as outlined in the note above. copies to: Jordi Le MD, Hong D DO Apr 01, 2016 17:57 Greg Monroy MD Apr 02, 2016 10:13
[2016-04-23] MEDS ORDERED: AZIT250T4 PO (12:12)
== END 2016-04-01 14:28 | disposition home or self-care (01) ==
LOC: SED 12:21 → MPC 17:00
PROVIDERS: ADMIT Urology; ATTEND Urology
DX: E11.649 Type 2 diabetes mellitus with hypoglycemia without coma (principal); C91.10 Chronic lymphocytic leukemia of B-cell type not having achieved remission; R41.82 Altered mental status, unspecified; R53.83 Other fatigue; G47.33 Obstructive sleep apnea (adult) (pediatric); R74.0 Nonspecific elevation of levels of transaminase and lactic acid dehydrogenase [LDH]; I50.30 Unspecified diastolic (congestive) heart failure; E78.5 Hyperlipidemia, unspecified; R32 Unspecified urinary incontinence; G89.4 Chronic pain syndrome; R23.8 Other skin changes; R07.89 Other chest pain; I10 Essential (primary) hypertension; F39 Unspecified mood [affective] disorder; F17.210 Nicotine dependence, cigarettes, uncomplicated; F32.9 Major depressive disorder, single episode, unspecified; K59.00 Constipation, unspecified; K21.9 Gastro-esophageal reflux disease without esophagitis; Z91.81 History of falling; Z79.82 Long term (current) use of aspirin; Z79.4 Long term (current) use of insulin
CPT/HCPCS: 36415; 70450; 76700; 80053; 80061; 80201; 81000; 82140; 82308; 82607; 82746; 82784; 82948; 83036; 83605; 83880; 84436; 84443; 84479; 84484; 85025; 85610; 86705; 86709; 87040; 87340; 87341; 93005; 94799; 96365; 96366; 96367; 96375; 96376; 99285; G0378; G0472; G0480; J1650; J1815; J2543; J3370; J3475; J7030